=== PATIENT | male | born 1965 | race African-American/Black ===

== ENCOUNTER 2016-04-18 12:45 | Emergency (ER) | payer SELFPAY ==
[~2016-04-18] VITALS: Ht 175.3 cm; Wt 93.0 kg
[2016-04-18 12:47] VITALS: BP 132/91; PULSE 101; RESP 15; TEMP 98.1; O2SAT 95
--- NOTE | 2016-04-18 13:35 | PD ---
HPI Chief Complaint: Flank/Kidney Pain Time Seen by Provider: 13:30 Travel History International Travel<30 days: No Contact w/Intl Traveler<30days: No Traveled to known affect area: No History of Present Illness HPI Patient's 51-year-old male presenting to the emergency department for evaluation of right lower back pain. Patient states pain started last Monday , it's worse with movement and states it feels tight. Patient reports it feels somewhat better since started however he feels as if the pain is on the "inside ". He denies any dysuria but states he didn't drink a lot of soda last week when the pain started. He has been taking ibuprofen with little relief of his symptoms and has been drinking cranberry juice. He denies any history of kidney stones. He states he was diagnosed with high blood pressure while he was incarcerated but has not been taking any medications for this. 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 [facility] Past Medical History Hypertension: Yes Past Surgical History Other Surgery: Yes (hand surgery, ankle surgery) Social History Tobacco Use: Yes Allergies-Medications (Allergen,Severity, Reaction): Coded Allergies: No Known Allergies (Unverified , 04/18/16) Reported Meds & Prescriptions Reported Meds & Active Scripts Active Orphenadrine CR (Orphenadrine Citrate) 100 Mg Tab 100 Mg PO Q12HR Ibuprofen 600 Mg Tab 600 Mg PO Q6H PRN Acetaminophen Extra Strength (Acetaminophen) 500 Mg Cap 1,000 Mg PO Q6H PRN Review of Systems Except as stated in HPI: all other systems reviewed are Neg General / Constitutional: No: Fever, Chills Cardiovascular: No: Chest Pain or Discomfort Respiratory: No: Shortness of Breath Gastrointestinal: No: Nausea, Vomiting, Diarrhea, Abdominal Pain Genitourinary: No: Dysuria Musculoskeletal: Positive: Myalgias, Cramping, Pain Neurologic: No: Dizziness, Syncope Physical Exam Narrative GENERAL: Well-developed, well-nourished, alert gentleman. Resting comfortably in no acute distress. SKIN: Warm and dry. HEAD: Atraumatic. Normocephalic. EYES: Pupils equal and round. No scleral icterus. No injection or drainage. ENT: No nasal bleeding or discharge. Mucous membranes pink and moist. NECK: Trachea midline. No JVD. CARDIOVASCULAR: Regular rate and rhythm. No murmur appreciated. RESPIRATORY: No accessory muscle use. Clear to auscultation. Breath sounds equal bilaterally. GASTROINTESTINAL: Abdomen soft, non-tender, nondistended. Hepatic and splenic margins not palpable. No CVAT bilaterally MUSCULOSKELETAL: No obvious deformities. No clubbing. No cyanosis. No edema. No tenderness to palpation in paraspinal musculature in the lumbar region. NEUROLOGICAL: Awake and alert. No obvious cranial nerve deficits. Motor grossly within normal limits. Normal speech. PSYCHIATRIC: Appropriate mood and affect; insight and judgment normal. Data Data Last Documented VS Vital Signs Date Time Temp Pulse Resp B/P Pulse Ox O2 Delivery O2 Flow Rate FiO2 04/18/16 12:47 98.1 101 15 132/91 95 Orders Complete Blood Count With Diff (04/18/16 13:29) Basic Metabolic Panel (Bmp) (04/18/16 13:29) Urinalysis - C+S If Indicated (04/18/16 13:29) Ct Abd/Pel W/O Iv Contrast (04/18/16 13:29) Labs Laboratory Tests Test 04/18/16 04/18/16 13:30 13:45 White Blood Count 8.5 TH/MM3 Red Blood Count 5.54 MIL/MM3 Hemoglobin 15.5 GM/DL Hematocrit 48.0 % Mean Corpuscular Volume 86.6 FL Mean Corpuscular Hemoglobin 28.0 PG Mean Corpuscular Hemoglobin 32.4 % Concent Red Cell Distribution Width 14.6 % Platelet Count 254 TH/MM3 Mean Platelet Volume 8.5 FL Neutrophils (%) (Auto) 40.4 % Lymphocytes (%) (Auto) 48.5 % Monocytes (%) (Auto) 6.7 % Eosinophils (%) (Auto) 3.6 % Basophils (%) (Auto) 0.8 % Neutrophils # (Auto) 3.4 TH/MM3 Lymphocytes # (Auto) 4.1 TH/MM3 Monocytes # (Auto) 0.6 TH/MM3 Eosinophils # (Auto) 0.3 TH/MM3 Basophils # (Auto) 0.1 TH/MM3 CBC Comment DIFF FINAL Differential Comment Sodium Level 139 MEQ/L Potassium Level 3.8 MEQ/L Chloride Level 107 MEQ/L Carbon Dioxide Level 25.3 MEQ/L Anion Gap 7 MEQ/L Blood Urea Nitrogen 8 MG/DL Creatinine 1.19 MG/DL Estimat Glomerular Filtration 64 ML/MIN Rate Random Glucose 154 MG/DL Calcium Level 9.0 MG/DL Urine Color YELLOW Urine Turbidity CLEAR Urine pH 6.0 Urine Specific [place] 1.010 Urine Protein NEG mg/dL Urine Glucose (UA) 300 mg/dL Urine Ketones NEG mg/dL Urine Occult Blood NEG Urine Nitrite NEG Urine Bilirubin NEG Urine Urobilinogen LESS THAN 2.0 MG/DL Urine Leukocyte Esterase NEG Urine Squamous Epithelial <1 /hpf Cells Microscopic Urinalysis Comment CULT NOT INDICATED MDM Medical Decision Making Medical Screen Exam Complete: Yes Emergency Medical Condition: Yes Interpretation(s) Vital Signs Date Time Temp Pulse Resp B/P Pulse Ox O2 Delivery O2 Flow Rate FiO2 04/18/16 12:47 98.1 101 15 132/91 95 Differential Diagnosis Muscle strain versus muscle spasm versus discogenic pain versus renal stone versus urinary tract infection versus other Narrative Course Patient's 51-year-old male presenting to the emergency room for evaluation of right lower back pain that started 5 days ago. Physical examination appears more consistent with muscle strain, muscle spasms however patient is nontender on exam and moves all extremities without any pain. Labs and imaging ordered and pending. Care patient will be transferred to a provider when a medical bed is available. Scripts Orphenadrine ER 12 HR (Orphenadrine CR)100 Mg [id number] Mg PO Q12HR #10 TAB Prov:Hermilo Soler MD 04/18/16 Ibuprofen 600 Mg [id number] Mg PO Q6H PRN (Pain/Inflammation) #40 TAB Prov:Hermilo Soler MD 04/18/16 Acetaminophen (Acetaminophen Extra Strength)500 Mg Cap1,000 Mg PO Q6H PRN (PAIN SCALE 4 TO 10) #60 CAP Ref 1 Prov:Hermilo Soler MD 04/18/16 Mahi Mcfadden Apr 18, 2016 13:35
[2016-04-18 14:15] LABS: AUTOMATED NEUTROPHIL # 3.4 TH/MM3 (1.8-7.7); BASOPHIL # 0.1 TH/MM3 (0-0.2); BASOPHIL % 0.8 % (0.0-2.0); EOSINOPHIL # 0.3 TH/MM3 (0-0.4); EOSINOPHIL % 3.6 % (0.0-4.0); HEMO FLAGS DIFF FINAL; LYMPH % 48.5 % (9.0-44.0); LYMPHOCYTE # 4.1 TH/MM3 (1.0-4.8); MEAN CELL VOLUME 86.6 FL (80.0-100.0); MEAN CORPUSCULAR HGB CONC 32.4 % (32.0-36.0); MONO % 6.7 % (0.0-8.0); NEUT % 40.4 % (16.0-70.0); PLATELET COUNT 254 TH/MM3 (150-450); RED BLOOD COUNT 5.54 MIL/MM3 (4.50-5.90); RED CELL DISTRIBUTION WIDTH 14.6 % (11.6-17.2); WHITE BLOOD COUNT 8.5 TH/MM3 (4.0-11.0)
[2016-04-18 14:21] LABS: BLOOD, URINE NEG (NEG); COMMENT (UR) CULT NOT INDICATED; CULTURE IF INDICATED CULT NOT INDICATED; GLUCOSE,URINE 300 mg/dL (NEG); KETONE, URINE NEG (NEG); NITRITE,URINE NEG (NEG); SQUAMOUS EPITHELIAL CELL URINE <1 /hpf (0-5); URINE COLOR YELLOW (YELLW/STRAW)
[2016-04-18 14:30] LABS: BICARBONATE 25.3 MEQ/L (21.0-32.0); POTASSIUM 3.8 MEQ/L (3.5-5.1)
--- NOTE | 2016-04-18 14:56 | RADRPT ---
EXAM DATE/TIME: 04/18/2016 14:26 [facility] COMPARISON: No previous studies available for comparison. INDICATIONS : Right flank pain. ORAL CONTRAST: No oral contrast ingested. RADIATION DOSE: 9.96 CTDIvol (mGy) MEDICAL HISTORY : Hypertension. SURGICAL HISTORY : None. ENCOUNTER: Initial ACUITY: 1 day PAIN SCALE: 6/10 LOCATION: Right flank TECHNIQUE: Volumetric scanning of the abdomen and pelvis was performed. Using automated exposure control and ad justment of the mA and/or kV according to patient size, radiation dose was kept as low as reasonably achievable to obtain optimal diagnostic quality images. FINDINGS: LOWER LUNGS: The visualized lower lungs are clear. LIVER: Homogeneous density without lesion. There is no dilation of the biliary tree. No calcified gallston es. SPLEEN: Normal size without lesion. PANCREAS: Within normal limits. KIDNEYS: Normal in size and shape. There is no mass, stone, or hydronephrosis. ADRENAL GLANDS: Within normal limits. VASCULAR: There is no aortic aneurysm. BOWEL/MESENTERY: The stomach, small bowel, and colon demonstrate no acute abnormality. There is no free intraperitone al air or fluid. ABDOMINAL WALL: Within normal limits. RETROPERITONEUM: There is no lymphadenopathy. BLADDER: No wall thickening or mass. REPRODUCTIVE: Within normal limits. INGUINAL: There is no lymphadenopathy or hernia. MUSCULOSKELETAL: Degenerative disc disease and facet arthropathy without evidence of acute process. CONCLUSION: No acute disease. No evidence of renal calculi or obstructive uropathy. Cornelio Leon MD on April 18, 2016 at 14:52 Board Certified Radiologist. This report was verified electronically.
--- NOTE | 2016-04-18 16:14 | PD ---
Physical Exam Date Seen by Provider: Apr 18, 2016 Time Seen by Provider: 16:13 Narrative 51-year-old Afro-[place] male since the emergency Department with lower back pain for the past week. Patient was recently worked up by Mahi Rangel [employer] labs ordered including CBC, CMP, urinalysis, and CT scan lower abdomen and pelvis. All labs are within normal limits. CT is within normal limits as well. Data Data Last Documented VS Vital Signs Date Time Temp Pulse Resp B/P Pulse Ox O2 Delivery O2 Flow Rate FiO2 04/18/16 12:47 98.1 101 15 132/91 95 Orders Complete Blood Count With Diff (04/18/16 13:29) Basic Metabolic Panel (Bmp) (04/18/16 13:29) Urinalysis - C+S If Indicated (04/18/16 13:29) Ct Abd/Pel W/O Iv Contrast (04/18/16 13:29) Labs Laboratory Tests Test 04/18/16 04/18/16 13:30 13:45 White Blood Count 8.5 TH/MM3 Red Blood Count 5.54 MIL/MM3 Hemoglobin 15.5 GM/DL Hematocrit 48.0 % Mean Corpuscular Volume 86.6 FL Mean Corpuscular Hemoglobin 28.0 PG Mean Corpuscular Hemoglobin 32.4 % Concent Red Cell Distribution Width 14.6 % Platelet Count 254 TH/MM3 Mean Platelet Volume 8.5 FL Neutrophils (%) (Auto) 40.4 % Lymphocytes (%) (Auto) 48.5 % Monocytes (%) (Auto) 6.7 % Eosinophils (%) (Auto) 3.6 % Basophils (%) (Auto) 0.8 % Neutrophils # (Auto) 3.4 TH/MM3 Lymphocytes # (Auto) 4.1 TH/MM3 Monocytes # (Auto) 0.6 TH/MM3 Eosinophils # (Auto) 0.3 TH/MM3 Basophils # (Auto) 0.1 TH/MM3 CBC Comment DIFF FINAL Differential Comment Sodium Level 139 MEQ/L Potassium Level 3.8 MEQ/L Chloride Level 107 MEQ/L Carbon Dioxide Level 25.3 MEQ/L Anion Gap 7 MEQ/L Blood Urea Nitrogen 8 MG/DL Creatinine 1.19 MG/DL Estimat Glomerular Filtration 64 ML/MIN Rate Random Glucose 154 MG/DL Calcium Level 9.0 MG/DL Urine Color YELLOW Urine Turbidity CLEAR Urine pH 6.0 Urine Specific [place] 1.010 Urine Protein NEG mg/dL Urine Glucose (UA) 300 mg/dL Urine Ketones NEG mg/dL Urine Occult Blood NEG Urine Nitrite NEG Urine Bilirubin NEG Urine Urobilinogen LESS THAN 2.0 MG/DL Urine Leukocyte Esterase NEG Urine Squamous Epithelial <1 /hpf Cells Microscopic Urinalysis Comment CULT NOT INDICATED MDM Medical Record Reviewed: Yes Supervised Visit with AMARI: Yes Differential Diagnosis Lower abdominal pain. Lumbago. Muscle spasm. Narrative Course Patient was recently worked up by Mahi CARRILLO labs ordered including CBC, CMP, urinalysis, and CT scan lower abdomen and pelvis. All labs are within normal limits. CT is within normal limits as well. Patient be discharged home with a prescription for Norflex 100 mg twice a day # 10. Patient is given ibuprofen 600 mg 4 times a day #40. Patient can take extra strength Tylenol 2 tabs every 6 hours when necessary as well. Patient is use heat and ice and gentle stretching and follow-up with local primary care physician as needed. Patient male was return to the emergency department if symptoms worsen. Diagnosis Primary Impression: Low back pain Qualified Code: M54.5 - Acute bilateral low back pain without sciatica Patient Instructions: Acute Low Back Pain (ED), General Instructions, Lower Back Exercises (GEN) Additional Instruction: Patient be discharged home with a prescription for Norflex 100 mg twice a day # 10. Patient is given ibuprofen 600 mg 4 times a day #40. Patient can take extra strength Tylenol 2 tabs every 6 hours when necessary as well. Patient is use heat and ice and gentle stretching and follow-up with local primary care physician as needed. Patient male was return to the emergency department if symptoms worsen. Med/Other Pt SpecificInfo: Prescription(s) given Scripts Orphenadrine ER 12 HR (Orphenadrine CR)100 Mg [id number] Mg PO Q12HR #10 TAB Prov:Hermilo Soler MD 04/18/16 Ibuprofen 600 Mg [id number] Mg PO Q6H PRN (Pain/Inflammation) #40 TAB Prov:Hermilo Soler MD 04/18/16 Acetaminophen (Acetaminophen Extra Strength)500 Mg Cap1,000 Mg PO Q6H PRN (PAIN SCALE 4 TO 10) #60 CAP Ref 1 Prov:Hermilo Soler MD 04/18/16 Disposition: DISCHARGE HOME Condition: Stable Juaquin Silverman Apr 18, 2016 16:14
[2016-04-18] MEDS ORDERED: EXTR500C PO (16:20)
[2016-04-18] MEDS ORDERED: IBUP-232 PO (16:20)
[2016-04-18] MEDS ORDERED: ORPH100T99 PO (16:20)
== END 2016-04-18 16:53 | disposition home or self-care (01) ==
LOC: NEPB 12:45
DX: M54.5 Low back pain (principal); I10 Essential (primary) hypertension; Z72.0 Tobacco use
CPT/HCPCS: 74176; 80048; 81001; 85025

== ENCOUNTER 2017-04-05 14:14 | Inpatient (IN) | payer MEDICARE, MEDICAID ==
[~2017-04-05 14:14] MED LIST: EXTR500C PO; IBUP-232 PO; ORPH100T2 PO
[2017-04-05] MEDS ORDERED: IOHEXOL 350 MG/ML 10 ML VIAL (for RAD DIAG) IVCONTRAST ONE (14:15)
[2017-04-05 14:34] VITALS: BP 165/111; PULSE 101; RESP 16; TEMP 98.1; O2SAT 99
[2017-04-05] MEDS ORDERED: SODIUM CHLOR 0.9% 1000 ML INJ 1,000 ML IV SCH (15:22)
--- NOTE | 2017-04-05 15:27 | PD ---
HPI Chief Complaint: GI Complaint Time Seen by Provider: 15:17 Travel History International Travel<30 days: No Contact w/Intl Traveler<30days: No Traveled to known affect area: No History of Present Illness HPI 52-year-old -[place] male presents emergency department with history of left low back and hip pain with radicular symptoms into the right lower leg. Patient states he took 2 BC powders last evening. He states he woke up in the night last night with vomiting and nausea which is continued through the day today. He is now complaining of left lower abdominal pain. He denies heartburn. He denies diarrhea or constipation. He states he continues to be nauseous. Patient has no previous history of kidney stones or diverticulitis or colitis in the past. Pain is currently 8 out of 10. He denies weakness in the left lower extremity. He denies rash. He has no known drug allergies. PFSH Past Medical History Hypertension: Yes Tetanus Vaccination: < 5 Years Past Surgical History Other Surgery: Yes (hand surgery, ankle surgery) Social History Alcohol Use: No Tobacco Use: Yes Substance Use: No Allergies-Medications (Allergen,Severity, Reaction): Coded Allergies: No Known Allergies (Unverified Allergy, Unknown, 04/05/17) Reported Meds & Prescriptions Reported Meds & Active Scripts Active Orphenadrine CR (Orphenadrine Citrate) 100 Mg Tab 100 Mg PO Q12HR Ibuprofen 600 Mg Tab 600 Mg PO Q6H PRN Acetaminophen Extra Strength (Acetaminophen) 500 Mg Cap 1,000 Mg PO Q6H PRN Review of Systems Except as stated in HPI: all other systems reviewed are Neg General / Constitutional: No: Fever, Chills Eyes: No: Visual changes HENT: No: Headaches Cardiovascular: No: Chest Pain or Discomfort Respiratory: No: Shortness of Breath Gastrointestinal: Positive: Nausea, Vomiting, Abdominal Pain, No: Diarrhea Genitourinary: No: Dysuria Musculoskeletal: Positive: Myalgias, Pain Skin: No Rash Neurologic: No: Weakness Psychiatric: No: Depression Endocrine: No: Polydipsia Hematologic/Lymphatic: No: Easy Bruising Physical Exam Narrative GENERAL: Patient appears in no obvious distress per SKIN: Warm and dry. Normal color. Normal turgor. No rash. HEAD: Atraumatic. Normocephalic. EYES: Pupils equal and round. No scleral icterus. No injection or drainage. ENT: No nasal bleeding or discharge. Mucous membranes pink and moist. Pharynx is clear. Airways patent NECK: Trachea midline. Supple. CARDIOVASCULAR: Regular rate and rhythm. No murmurs gallops or rubs RESPIRATORY: No accessory muscle use. Clear to auscultation. Breath sounds equal bilaterally. GASTROINTESTINAL: Abdomen soft, diffuse mild tenderness on the left than the right. Nondistended. No CVA tenderness. Hepatic and splenic margins not palpable. MUSCULOSKELETAL: Extremities without clubbing, cyanosis, or edema. No obvious deformities. NEUROLOGICAL: Awake and alert. No obvious cranial nerve deficits. Motor grossly within normal limits. Five out of 5 muscle strength in the arms and legs. Normal speech. PSYCHIATRIC: Appropriate mood and affect; insight and judgment normal. Data Data Last Documented VS Vital Signs Date Time Temp Pulse Resp B/P (MAP) Pulse Ox O2 Delivery O2 Flow Rate FiO2 04/05/17 15:41 Room Air 04/05/17 15:41 98 04/05/17 14:34 98.1 101 16 Orders Orders Complete Blood Count With Diff (04/05/17 14:34) Comprehensive Metabolic Panel (04/05/17 14:34) Urinalysis - C+S If Indicated (04/05/17 14:34) Iv Access Insert/Monitor (04/05/17 14:34) Oxygen Administration (04/05/17 14:34) Oximetry (04/05/17 14:34) Lipase (04/05/17 14:34) Ct Abd/Pel W Iv Contrast(Rout) (04/05/17 15:22) Ecg Monitoring (04/05/17 15:22) Ondansetron Inj (Zofran Inj) (04/05/17 15:30) Sodium Chlor 0.9% 1000 Ml Inj (Ns 1000 M (04/05/17 15:22) Sodium Chloride 0.9% Flush (Ns Flush) (04/05/17 15:30) Ketorolac Inj (Toradol Inj) (04/05/17 15:30) Al-Mag Hy-Si 40-40-4 Mg/Ml Liq (Mag-Al P (04/05/17 15:30) Lidocaine 2% Viscous (Xylocaine 2% Visco (04/05/17 15:30) Iohexol 350 Inj (Omnipaque 350 Inj) (04/05/17 14:15) Labs Laboratory Tests Test 04/05/17 14:42 04/05/17 14:45 White Blood Count 10.0 TH/MM3 Red Blood Count 5.71 MIL/MM3 Hemoglobin 16.7 GM/DL Hematocrit 49.0 % Mean Corpuscular Volume 85.9 FL Mean Corpuscular Hemoglobin 29.3 PG Mean Corpuscular Hemoglobin Concent 34.1 % Red Cell Distribution Width 14.1 % Platelet Count 272 TH/MM3 Mean Platelet Volume 7.9 FL Neutrophils (%) (Auto) 58.6 % Lymphocytes (%) (Auto) 33.5 % Monocytes (%) (Auto) 6.6 % Eosinophils (%) (Auto) 0.8 % Basophils (%) (Auto) 0.5 % Neutrophils # (Auto) 5.8 TH/MM3 Lymphocytes # (Auto) 3.3 TH/MM3 Monocytes # (Auto) 0.7 TH/MM3 Eosinophils # (Auto) 0.1 TH/MM3 Basophils # (Auto) 0.1 TH/MM3 CBC Comment DIFF FINAL Differential Comment Blood Urea Nitrogen 8 MG/DL Creatinine 1.13 MG/DL Random Glucose 107 MG/DL Total Protein 8.9 GM/DL Albumin 4.2 GM/DL Calcium Level 9.0 MG/DL Alkaline Phosphatase 66 U/L Aspartate Amino Transf (AST/SGOT) 16 U/L Alanine Aminotransferase (ALT/SGPT) 27 U/L Total Bilirubin 0.4 MG/DL Sodium Level 137 MEQ/L Potassium Level 3.4 MEQ/L Chloride Level 102 MEQ/L Carbon Dioxide Level 28.0 MEQ/L Anion Gap 7 MEQ/L Estimat Glomerular Filtration Rate 83 ML/MIN Lipase 935 U/L Urine Color YELLOW Urine Turbidity CLEAR Urine pH 6.0 Urine Specific [place] 1.019 Urine Protein NEG mg/dL Urine Glucose (UA) NEG mg/dL Urine Ketones NEG mg/dL Urine Occult Blood NEG Urine Nitrite NEG Urine Bilirubin NEG Urine Urobilinogen LESS THAN 2.0 MG/DL Urine Leukocyte Esterase NEG Urine WBC LESS THAN 1 /hpf Microscopic Urinalysis Comment CULT NOT INDICATED MDM Medical Decision Making Medical Screen Exam Complete: Yes Emergency Medical Condition: Yes Differential Diagnosis Left lower abdominal pain. Diverticulitis. Gastroenteritis. Left flank pain. Sciatica. Narrative Course Labs ordered including CBC, CMP, lipase, and urinalysis. IV access is obtained the patient is given 1000 mL's normal saline bolus. Patient is given Toradol 30 mg IV as well as Zofran 4 mg IV. Abdominal pelvic CT is ordered with IV contrast. CBC is unremarkable Urinalysis is unremarkable. CMP shows potassium 3.4, GFR slightly low at 83, cranial glucose 107. Total protein 8.9 Lipase is significantly elevated at 935 CT scan shows: CONCLUSION: 1. No abnormality is identified to explain the abdominal pain. No acute finding is seen. 2. There is a stable 12 mm left adrenal gland nodule. The lack of exchange operator the one year strongly suggests a benign process. Patient is felt to warrant observation for acute pancreatitis. Call laced to the hospitalist for admission Diagnosis Primary Impression: Pancreatitis, acute Qualified Codes: K85.90 - Acute pancreatitis without necrosis or infection, unspecified Additional Impressions: Nausea and vomiting Qualified Codes: R11.2 - Nausea with vomiting, unspecified Abdominal pain Qualified Codes: R10.12 - Left upper quadrant pain Admitting Information Admitting Physician Requests: Observation Condition: Stable Juaquin Silverman Apr 05, 2017 15:27
[2017-04-05] MEDS ORDERED: SODIUM CHLORIDE 0.9% FLUSH 10 ML FLUSH IV FLUSH PRN ×2 (15:30→19:00)
[2017-04-05] MEDS ORDERED: LIDOCAINE VISCOUS 2% SOLN 15 ML UDC PO ONE (15:30)
[2017-04-05] MEDS ORDERED: ONDANSETRON HCL 4 MG/2 ML VIAL IVP ONE (15:30)
[2017-04-05] MEDS ORDERED: KETOROLAC TROMETHAMINE 30 MG/ML (IVP) VIAL IVP ONE (15:30)
[2017-04-05] MEDS ORDERED: ALUMINUM/MAGNESIUM/SIMETH 30 ML CUP PO ONE (15:30)
[2017-04-05 15:41] VITALS: O2SAT 98
[2017-04-05 15:43] LABS: AUTOMATED NEUTROPHIL # 5.8 TH/MM3 (1.8-7.7); BASOPHIL # 0.1 TH/MM3 (0-0.2); BASOPHIL % 0.5 % (0.0-2.0); EOSINOPHIL # 0.1 TH/MM3 (0-0.4); EOSINOPHIL % 0.8 % (0.0-4.0); HEMOGLOBIN 16.7 GM/DL (13.0-17.0); LYMPH % 33.5 % (9.0-44.0); LYMPHOCYTE # 3.3 TH/MM3 (1.0-4.8); MEAN CELL VOLUME 85.9 FL (80.0-100.0); MEAN CORPUSCULAR HEMOGLOBIN 29.3 PG (27.0-34.0); MEAN CORPUSCULAR HGB CONC 34.1 % (32.0-36.0); MEAN PLATELET VOLUME 7.9 FL (7.0-11.0); MONO % 6.6 % (0.0-8.0); MONOCYTE # 0.7 TH/MM3 (0-0.9); NEUT % 58.6 % (16.0-70.0); PLATELET COUNT 272 TH/MM3 (150-450); RED BLOOD COUNT 5.71 MIL/MM3 (4.50-5.90); RED CELL DISTRIBUTION WIDTH 14.1 % (11.6-17.2)
[2017-04-05 15:55] LABS: BILIRUBIN, URINE NEG (NEG); BLOOD, URINE NEG (NEG); GLUCOSE,URINE NEG (NEG); KETONE, URINE NEG (NEG); NITRITE,URINE NEG (NEG); URINE COLOR YELLOW (YELLW/STRAW); URINE LEUKOCYTE ESTERASE NEG (NEG)
[2017-04-05 16:02] LABS: ALBUMIN 4.2 GM/DL (3.4-5.0); ALT (GPT) 27 U/L (12-78); AST (GOT) 16 U/L (15-37); BLOOD UREA NITROGEN 8 MG/DL (7-18); CHLORIDE 102 MEQ/L (98-107); CREATININE 1.13 MG/DL (0.60-1.30); GLOMERULAR FILTRATION RATE 83 ML/MIN (>89); GLUCOSE,RANDOM 107 MG/DL (74-106); SODIUM (NA) 137 MEQ/L (136-145)
[2017-04-05 16:04] LABS: ALKALINE PHOSPHATASE 66 U/L (45-117); TOTAL BILIRUBIN ADULT 0.4 MG/DL (0.2-1.0); TOTAL PROTEIN 8.9 GM/DL (6.4-8.2)
--- NOTE | 2017-04-05 16:49 | RADRPT ---
EXAM DATE/TIME: 04/05/2017 16:27 [facility] COMPARISON: CT ABDOMEN & PELVIS W/O CONTRAST, April 18, 2016, 14:26. INDICATIONS : Vomiting, left lower quadrant pain. IV CONTRAST: 97 cc Omnipaque 350 (iohexol) IV ORAL CONTRAST: No oral contrast ingested. RADIATION DOSE: 11.64 CTDIvol (mGy) MEDICAL HISTORY : Hypertension. SURGICAL HISTORY : None. ENCOUNTER: Initial ACUITY: 1 day PAIN SCALE: 7/10 LOCATION: Left lower quadrant TECHNIQUE: Volumetric scanning of the abdomen and pelvis was performed. Using automated exposure control and ad justment of the mA and/or kV according to patient size, radiation dose was kept as low as reasonably achievable to obtain optimal diagnostic quality images. DICOM format image data is available electro nically for review and comparison. FINDINGS: LOWER LUNGS: The visualized lower lungs are clear. LIVER: Homogeneous density without lesion. There is no dilation of the biliary tree. No calcified gallston es. SPLEEN: Normal size without lesion. PANCREAS: Within normal limits. KIDNEYS: Normal in size and shape. There is no mass, stone or hydronephrosis. ADRENAL GLANDS: Right adrenal gland is within normal limits. There is a small nodule/mass arising from the left adren al gland measuring 12 x 8 mm, stable from the prior study. Hounsfield measurements on the prior nonco ntrast enhanced examination were 12. VASCULAR: There is no aortic aneurysm. There is moderate atherosclerotic disease. BOWEL/MESENTERY: The stomach, small bowel, and colon demonstrate no acute abnormality. There is no free intraperitone al air or fluid. Appendix and terminal ileum are normal. ABDOMINAL WALL: Within normal limits. RETROPERITONEUM: There is no lymphadenopathy. BLADDER: No wall thickening or mass. REPRODUCTIVE: Within normal limits. INGUINAL: There is no lymphadenopathy or hernia. MUSCULOSKELETAL: There are degenerative changes of the lumbar spine with pars defects of L5. CONCLUSION: 1. No abnormality is identified to explain the abdominal pain. No acute finding is seen. 2. There is a stable 12 mm left adrenal gland nodule. The lack of gear changer the one year strongly s uggests a benign process. Efe Plaza MD on April 05, 2017 at 16:44 Board Certified Radiologist. This report was verified electronically.
[2017-04-05 18:08] VITALS: BP 158/99; PULSE 90; RESP 16; O2SAT 99
--- NOTE | 2017-04-05 18:28 | HHI.HP ---
HPI Service Family Medicine Primary Care Physician No Primary Care Physician Admission Diagnosis Pancreatitis/Nausea/Vomitting Diagnoses: Chief Complaint: abdominal pain International Travel<30 Days: No Contact w/Intl Traveler<30days: No History of Present Illness 52-year-old [place] male with history of pancreatitis presents today with abdominal pain. He states the pain started yesterday afternoon around 6 PM. Pain started suddenly. Located around his left/middle abdomen. Pain does not radiate. Discussed the pain is burning. 11/15. The pain has resolved currently after pain medication. The pain is constant. The pain did not come and go. He took 2 BC powders yesterday evening, they didn't help. He has vomited numerous times. No bloody emesis. Continued nausea. Denies any chest pain or shortness of breath. Denies any diarrhea. No fever/chills. Last bowel movement yesterday afternoon. Had baked chicken yesterday evening, said it tasted funny. No history of gallbladder disease. Says he has a history of hyperlipidemia. He last had pancreatitis in 2014 and was hospitalized. At that time, he was a heavy drinker. Stopped drinking since then. History of heartburn as well. Smoker as well. Review of Systems Constitutional: DENIES: Fever, Weight gain, Weight loss, Chills, Dizziness Eyes: DENIES: Vision loss Ears, nose, mouth, throat: DENIES: Hearing loss Respiratory: DENIES: Cough, Shortness of breath Cardiovascular: DENIES: Chest pain, Palpitations Past Family Social History Past Medical History Pancreatitis in the past Past Surgical History Left ankle surgery Right hand tendon Reported Medications Reported Meds & Active Scripts Active Orphenadrine CR (Orphenadrine Citrate) 100 Mg Tab 100 Mg PO Q12HR Ibuprofen 600 Mg Tab 600 Mg PO Q6H PRN Acetaminophen Extra Strength (Acetaminophen) 500 Mg Cap 1,000 Mg PO Q6H PRN Allergies: Coded Allergies: No Known Allergies (Unverified Allergy, Unknown, 04/05/17) Active Ordered Medications Active Medications Al Hydrox/Mg Hydrox/Simethicone (Mag-Al Plus Susp Liq) 30 ml ONCE ONCE PO Last administered on 04/05/17at 15:39; Admin Dose 30 ML; Start 04/05/17 at 15:30; Stop 04/05/17 at 15:31; Status DC Iohexol (Omnipaque 350 Inj) 97 ml STK-MED ONCE IVCONTRAST Last administered on at 16:40; Admin Dose 97 ML; Start 04/05/17 at 14:15; Stop 04/05/17 at 16: 39; Status DC Ketorolac Tromethamine (Toradol Inj) 30 mg ONCE ONCE IVP Last administered on at 15:40; Admin Dose 30 MG; Start 04/05/17 at 15:30; Stop 04/05/17 at 15: 31; Status DC Lidocaine HCl (Xylocaine 2% Viscous) 15 ml ONCE ONCE PO Last administered on at 15:39; Admin Dose 15 ML; Start 04/05/17 at 15:30; Stop 04/05/17 at 15:31 ; Status DC Ondansetron HCl (Zofran Inj) 4 mg ONCE ONCE IVP Last administered on 04/05/17at 15:39; Admin Dose 4 MG; Start 04/05/17 at 15:30; Stop 04/05/17 at 15:31; Status DC Sodium Chloride 1,000 ml @ 1,000 mls/hr Q1H IV Last administered on 04/05/17at 15:41; Admin Dose 1,000 MLS/HR; Start 04/05/17 at 15:22; Stop 04/05/17 at 16:21 ; Status DC Sodium Chloride (NS Flush) 2 ml UNSCH PRN IV FLUSH; Start 04/05/17 at 15:30 Family History Mother-HTN, epilepsy Father-unknown Sister-DM Social History Lives with mother 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 SKIN: No rashes, ecchymoses or lesions. Cool and dry. HEAD: Atraumatic. Normocephalic. EYES: Pupils equal round and reactive. Extraocular motions intact. No scleral icterus. No injection or drainage. ENT: Throat without erythema, tonsillar hypertrophy or exudate. Uvula midline. Airway patent. NECK: Trachea midline. No JVD or lymphadenopathy. Supple, nontender, no meningeal signs. CARDIOVASCULAR: Regular rate and rhythm without murmurs, gallops, or rubs. RESPIRATORY: Clear to auscultation. Breath sounds equal bilaterally. No wheezes , rales, or rhonchi. GASTROINTESTINAL: Abdomen soft, non-tender, nondistended. No hepato-splenomegaly , or palpable masses. No guarding. MUSCULOSKELETAL: Extremities without clubbing, cyanosis, or edema. No joint tenderness, effusion, or edema noted. No calf tenderness. NEUROLOGICAL: Awake and alert. Motor and sensory grossly within normal limits. Normal speech. Laboratory Laboratory Tests Test 04/05/17 14:42 04/05/17 14:45 White Blood Count 10.0 Red Blood Count 5.71 Hemoglobin 16.7 Hematocrit 49.0 Mean Corpuscular Volume 85.9 Mean Corpuscular Hemoglobin 29.3 Mean Corpuscular Hemoglobin Concent 34.1 Red Cell Distribution Width 14.1 Platelet Count 272 Mean Platelet Volume 7.9 Neutrophils (%) (Auto) 58.6 Lymphocytes (%) (Auto) 33.5 Monocytes (%) (Auto) 6.6 Eosinophils (%) (Auto) 0.8 Basophils (%) (Auto) 0.5 Neutrophils # (Auto) 5.8 Lymphocytes # (Auto) 3.3 Monocytes # (Auto) 0.7 Eosinophils # (Auto) 0.1 Basophils # (Auto) 0.1 CBC Comment DIFF FINAL Differential Comment Blood Urea Nitrogen 8 Creatinine 1.13 Random Glucose 107 Total Protein 8.9 Albumin 4.2 Calcium Level 9.0 Alkaline Phosphatase 66 Aspartate Amino Transf (AST/SGOT) 16 Alanine Aminotransferase (ALT/SGPT) 27 Total Bilirubin 0.4 Sodium Level 137 Potassium Level 3.4 Chloride Level 102 Carbon Dioxide Level 28.0 Anion Gap 7 Estimat Glomerular Filtration Rate 83 Lipase 935 Urine Color YELLOW Urine Turbidity CLEAR Urine pH 6.0 Urine Specific [place] 1.019 Urine Protein NEG Urine Glucose (UA) NEG Urine Ketones NEG Urine Occult Blood NEG Urine Nitrite NEG Urine Bilirubin NEG Urine Urobilinogen LESS THAN 2.0 Urine Leukocyte Esterase NEG Urine WBC LESS THAN 1 Microscopic Urinalysis Comment CULT NOT INDICATED Result Diagram: 04/05/17 1442 04/05/17 1442 Imaging Last Impressions Abdomen/Pelvis CT 04/05/17 1522 Signed Impressions: Service Date/Time: Wednesday, April 05, 2017 16:27 - CONCLUSION: 1. No abnormality is identified to explain the abdominal pain. No acute finding is seen. 2. There is a stable 12 mm left adrenal gland nodule. The lack of private branch exchange operator the one year strongly suggests a benign process. MD Lotus Lala VTE Risk Assessment Caprini VTE Risk Assessment: No/Low Risk (score <= 1) Caprini Risk Assessment Model Point Value = 1 Point Value = 2 Point Value = 3 Point Value = 5 Age 41-60 Minor surgery BMI > 25 kg/m2 Swollen legs Varicose veins or History of unexplained or recurrent spontaneous Oral contraceptives or hormone replacement Sepsis (< 1 month) Serious lung disease, including pneumonia (< 1 month) Abnormal pulmonary function Acute myocardial infarction Congestive heart failure (< 1 month) History of inflammatory bowel disease Medical patient at bed rest Age 61-74 Arthroscopic surgery Major open surgery (> 45 min) Laparoscopic surgery (> 45 min) Malignancy Confined to bed (> 72 hours) Immobilizing plaster cast Central venous access Age >= 75 History of VTE Family history of VTE Factor V Leiden Prothrombin [id number] Lupus anticoagulant Anticardiolipin antibodies Elevated serum homocysteine Heparin-induced thrombocytopenia Other congenital or acquired thrombophilia Stroke (< 1 month) Elective arthroplasty Hip, pelvis, or leg fracture Acute spinal cord injury (< 1 month) Prophylaxis Regimen Total Risk Factor Score Risk Level Prophylaxis Regimen 0-1 Low Early ambulation 2 Moderate Order ONE of the following: *Sequential Compression Device (SCD) *Heparin 5000 units SQ BID 3-4 Higher Order ONE of the following medications: *Heparin 5000 units SQ TID *Enoxaparin/Lovenox 40 mg SQ daily (WT < 150 kg, CrCl > 30 mL/min) *Enoxaparin/Lovenox 30 mg SQ daily (WT < 150 kg, CrCl > 10-29 mL/min) *Enoxaparin/Lovenox 30 mg SQ BID (WT < 150 kg, CrCl > 30 mL/min) AND/OR *Sequential Compression Device (SCD) 5 or more Highest Order ONE of the following medications: *Heparin 5000 units SQ TID (Preferred with Epidurals) *Enoxaparin/Lovenox 40 mg SQ daily (WT < 150 kg, CrCl > 30 mL/min) *Enoxaparin/Lovenox 30 mg SQ daily (WT < 150 kg, CrCl > 10-29 mL/min) *Enoxaparin/Lovenox 30 mg SQ BID (WT < 150 kg, CrCl > 30 mL/min) AND *Sequential Compression Device (SCD) Assessment and Plan Assessment and Plan 52 y/o male with history of pancreatitis, presents with abdominal pain with lipase elevated. Will admit for pancreatitis Code Status Full Discussed Condition With Mr. Silverman Problem List: (1) Pancreatitis, acute ICD Codes: K85.90 - Acute pancreatitis without necrosis or infection, unspecified Status: Acute Plan: Potential etiologies include gallstones, alcoholism, hypertriglyceridemia , medications, recent fatty meal, virus, versus other. Pt denies any alcohol use LFTs 16, 27; Lipase 935. Alk phos 66 Sim score of 0. Unable to calculate [place] due to no ABG CT scan: no acute abnormality -NPO, if nausea/vomiting improve may advance diet tomorrow as tolerated -LR at 250 mL per hour -I/O -Pain control: Toradol, morphine breakthrough -UDS, alcohol level -CBC, CMP, lipase in AM -Lipid profile to evaluate for triglyceridemia (2) HTN (hypertension) ICD Codes: I10 - Essential (primary) hypertension Plan: BP 165/11 on admission. May be pain-related -Continue to monitor -May benefit from outpatient treatment if continued (3) FEN Status: Acute Plan: Fluids: LR @ 250mls/hr Electrolytes: wnl, continue to monitor Nutrition: NPO DVT ppx: early ambulation Problem Qualifiers (1) Pancreatitis, acute: Qualified Codes: K85.90 - Acute pancreatitis without necrosis or infection, unspecified (2) HTN (hypertension): Qualified Codes: I10 - Essential (primary) hypertension All Barron MD Apr 05, 2017 18:28
[2017-04-05] MEDS ORDERED: ACETAMINOPHEN 325 MG TAB PO PRN (19:00)
[2017-04-05] MEDS ORDERED: MORPHINE SULFATE 2 MG/ML INJ IV PUSH PRN (19:00)
[2017-04-05] MEDS ORDERED: ONDANSETRON HCL 4 MG/2 ML VIAL IV PUSH PRN (19:00)
[2017-04-05] MEDS ORDERED: KETOROLAC TROMETHAMINE 30 MG/ML (IVP) VIAL IV PUSH PRN ×2 (19:00)
[2017-04-05] MEDS ORDERED: NALOXONE HCL 0.4 MG/ML AMP IV PUSH PRN (19:00)
[2017-04-05] MEDS: LACTATED RINGER'S 1000 ML INJ 1,000 ML IV SCH (20:48)
[2017-04-05] MEDS: SODIUM CHLORIDE 0.9% FLUSH 10 ML FLUSH IV FLUSH SCH (21:00)
[2017-04-05 21:16] VITALS: BP 135/93; PULSE 88; RESP 14; TEMP 98.1; O2SAT 94
[2017-04-05 21:43] LABS: TROPONIN I LESS THAN 0.02 NG/ML (0.02-0.05)
[2017-04-05 21:45] LABS: CHOLESTEROL/ HDL RATIO 3.46 RATIO; HDL CHOLESTEROL 54.9 MG/DL (40.0-60.0)
[2017-04-05 23:13] VITALS: BP 129/86; PULSE 85; RESP 16; TEMP 98.3; O2SAT 92
[2017-04-06] VITALS (7 sets, daily range): BP systolic 120–158; BP diastolic 66–95; PULSE 73–82; RESP 14–18; TEMP 98.1–98.7; O2SAT 94–97
[2017-04-06] MEDS: LACTATED RINGER'S 1000 ML INJ 1,000 ML IV SCH ×7 (01:14→23:30)
[2017-04-06 07:45] LABS: AUTOMATED NEUTROPHIL # 3.9 TH/MM3 (1.8-7.7); BASOPHIL # 0.1 TH/MM3 (0-0.2); BASOPHIL % 0.7 % (0.0-2.0); EOSINOPHIL # 0.2 TH/MM3 (0-0.4); EOSINOPHIL % 1.7 % (0.0-4.0); HEMATOCRIT 42.8 % (39.0-51.0); HEMOGLOBIN 14.4 GM/DL (13.0-17.0); LYMPH % 45.1 % (9.0-44.0); MEAN CELL VOLUME 86.5 FL (80.0-100.0); MEAN CORPUSCULAR HEMOGLOBIN 29.2 PG (27.0-34.0); MEAN CORPUSCULAR HGB CONC 33.7 % (32.0-36.0); MEAN PLATELET VOLUME 7.5 FL (7.0-11.0); MONO % 8.2 % (0.0-8.0); MONOCYTE # 0.7 TH/MM3 (0-0.9); NEUT % 44.3 % (16.0-70.0); PLATELET COUNT 234 TH/MM3 (150-450); RED BLOOD COUNT 4.95 MIL/MM3 (4.50-5.90); RED CELL DISTRIBUTION WIDTH 14.2 % (11.6-17.2); WHITE BLOOD COUNT 8.9 TH/MM3 (4.0-11.0)
[2017-04-06] MEDS: SODIUM CHLORIDE 0.9% FLUSH 10 ML FLUSH IV FLUSH SCH ×2 (08:32→21:03)
[2017-04-06] MEDS ORDERED: amLODIPine BESYLATE 5 MG TAB PO SCH (09:00)
--- NOTE | 2017-04-06 11:49 | HHI.FPPN ---
Subjective Remarks Patient seen and examined this morning. Temperature 98.1, pulse 82, respiratory rate 18, blood pressure 158/92, pulse ox 95 on room air. Reports that he is feeling better today though he is still feeling some abdominal pain. Describes the abdominal pain as a burning sensation that comes on rapidly and slowly fades away. It lasts for a few minutes. The pain causes him to feel nauseated and he has vomited a few times. He is not feeling hungry at this time. He has not had any bowel movements at this time either. We will start him on a liquid diet today and see how he progresses. (Bin Angela MD, R3) Objective Vitals Vital Signs Date Time Temp Pulse Resp B/P (MAP) Pulse Ox O2 Delivery O2 Flow Rate FiO2 04/06/17 09:52 20 04/06/17 07:52 98.1 82 18 158/92 (114) 95 04/06/17 03:32 98.2 77 16 147/90 (109) 94 04/05/17 23:13 98.3 85 16 129/86 (100) 92 04/05/17 21:16 98.1 88 14 135/93 (107) 94 04/05/17 20:40 04/05/17 18:08 90 16 158/99 (118) 99 04/05/17 15:41 Room Air 04/05/17 15:41 98 04/05/17 14:34 98.1 101 16 165/111 (129) 99 (Bin Angela MD, R3) Result Diagram: 04/06/17 0710 04/05/17 1442 Imaging Last Impressions Abdomen/Pelvis CT 04/05/17 1522 Signed Impressions: Service Date/Time: Wednesday, April 05, 2017 16:27 - CONCLUSION: 1. No abnormality is identified to explain the abdominal pain. No acute finding is seen. 2. There is a stable 12 mm left adrenal gland nodule. The lack of frame changer the one year strongly suggests a benign process. Efe Plaza MD Objective Remarks GEN: Well-developed, well-nourished patient. No acute distress. CV: Regular rate and rhythm without obvious murmurs LUNGS: Clear to auscultation bilaterally. Normal respiratory effort. No wheezes , rales, rhonchi. GI: Soft, nontender, nondistended. No palpable masses. Bowel sounds WNL. EXT: No edema. NEURO/PSYCH: Afocal. Awake, alert, and oriented x3. Appropriate insight and judgment. Medications and IVs Current Medications Medications (Trade) Dose Ordered Sig/Julian Route Start Time Stop Time Status Last Admin (NS Flush) 2 ml UNSCH PRN IV FLUSH 04/05/17 15:30 Lactated Ringer's 1,000 ml @ 250 mls/hr Q4H IV 04/05/17 19:30 04/06/17 08:32 (NS Flush) 2 ml UNSCH PRN IV FLUSH 04/05/17 19:00 (NS Flush) 2 ml BID IV FLUSH 04/05/17 21:00 (Zofran Inj) 4 mg Q6H PRN IV PUSH 04/05/17 19:00 (Tylenol) 650 mg Q6H PRN PO 04/05/17 19:00 (Toradol Inj) 15 mg Q6H PRN IV PUSH 04/05/17 19:00 04/10/17 18:59 (Toradol Inj) 30 mg Q6H PRN IV PUSH 04/05/17 19:00 04/10/17 18:59 04/06/17 08:33 (Morphine Inj) 2 mg Q3H PRN IV PUSH 04/05/17 19:00 (Narcan Inj) 0.4 mg UNSCH PRN IV PUSH 04/05/17 19:00 (Bin Angela MD, R3) A/P Assessment and Plan 52 y/o male with history of pancreatitis, presents with abdominal pain with lipase elevated. Will admit for pancreatitis Discharge Planning Pending improvement of abdominal pain and tolerance of a diet (Bin Angela MD, R3) Attending Attestation THIS CASE WAS DISCUSSED WITH THE RESIDENT PHYSICIANS DR ANGELA>DR FLAHERTY AND DR BUSTAMANTE.PATIENT WAS SEEN AND EXAMINED. I HAVE REVIEWED THE RECORD AND AGREE WITH THE ABOVE NOTE AND PLAN OF CARE WAS DISCUSSED. I HAVE AUTHORIZED THE ORDER FOR ADMISSION TO AN IN-PATIENT STATUS. (Joselo Orona MD) Problem List: (1) Pancreatitis, acute ICD Codes: K85.90 - Acute pancreatitis without necrosis or infection, unspecified Status: Acute Plan: Patient admitted for pancreatitis due to elevated lipase, gastritis is also in the differential. Pt denies any alcohol use Lipases trended down from 935-153 on 04/06/17 [place] score of 0. Unable to calculate [place] due to no ABG CT scan: no acute abnormality -Started liquid diet will progress as tolerated -Protonix 40 mg IV daily -LR at 250 mL per hour -I/O -Pain control: Toradol, morphine breakthrough -UDS, alcohol level: Negative -BMP for the a.m. -Lipid profile: Within normal limits (2) Gastritis ICD Codes: K29.70 - Gastritis, unspecified, without bleeding Plan: See plan above (3) HTN (hypertension) ICD Codes: I10 - Essential (primary) hypertension Plan: BP 165/11 on admission. Continues to be mildly elevated during his hospitalization. -Continue to monitor -May benefit from outpatient treatment if continued (4) FEN Status: Acute Plan: Fluids: LR @ 250mls/hr Electrolytes: wnl, continue to monitor Nutrition: Liquid diet DVT ppx: early ambulation, SCDs (Bin Angela MD, R3) Problem Qualifiers (1) Pancreatitis, acute: Qualified Codes: K85.90 - Acute pancreatitis without necrosis or infection, unspecified (2) HTN (hypertension): Qualified Codes: I10 - Essential (primary) hypertension Bin Angela MD, R3 Apr 06, 2017 11:49 Joselo Oroan MD Apr 07, 2017 14:10
[2017-04-06] MEDS ORDERED: PANTOPRAZOLE SODIUM 40 MG VIAL IV PUSH SCH (12:00)
[2017-04-07 03:34] VITALS: BP 115/73; PULSE 74; RESP 16; TEMP 98.3; O2SAT 96
[2017-04-07] MEDS: LACTATED RINGER'S 1000 ML INJ 1,000 ML IV SCH ×2 (03:39→07:30)
[2017-04-07 07:31] LABS: BICARBONATE 25.8 MEQ/L (21.0-32.0); CALCIUM 8.3 MG/DL (8.5-10.1); CREATININE 1.05 MG/DL (0.60-1.30)
[2017-04-07] MEDS: SODIUM CHLORIDE 0.9% FLUSH 10 ML FLUSH IV FLUSH SCH (07:43)
[2017-04-07 07:55] VITALS: BP 140/89; PULSE 59; RESP 18; TEMP 97.8; O2SAT 97
--- NOTE | 2017-04-07 08:43 | HHI.DCPOC ---
Discharge Care Plan Diagnosis: (1) Gastritis (2) Pancreatitis, acute Goals to Promote Your Health * To prevent worsening of your condition and complications * To maintain your health at the optimal level Directions to Meet Your Goals Take your medications as prescribed Follow your dietary instruction Follow activity as directed Keep your appointments as scheduled Take your immunizations and boosters as scheduled If your symptoms worsen call your PCP, if no PCP go to Urgent Care Center or Emergency Room Smoking is Dangerous to Your Health. Avoid second hand smoke Call the 24-hour hour crisis hotline for domestic abuse at All Barron MD Apr 07, 2017 08:43
--- NOTE | 2017-04-07 08:43 | HHI.FPPN ---
Subjective Remarks Patient seen and examined this morning. No acute events overnight. Patient reports improved pain this morning. No nausea or vomiting. Tolerated full liquid diet yesterday without any issues. Disease review go home. Denies any symptoms, including chest pain, shortness of breath, leg pain. Objective Vitals Vital Signs Date Time Temp Pulse Resp B/P (MAP) Pulse Ox O2 Delivery O2 Flow Rate FiO2 04/07/17 07:55 97.8 59 18 140/89 (106) 97 04/07/17 03:34 98.3 74 16 115/73 (87) 96 04/06/17 23:51 98.3 82 14 120/66 (84) 94 04/06/17 19:10 95 04/06/17 19:08 98.2 73 18 137/79 (98) 94 04/06/17 15:32 98.7 79 16 134/79 (97) 95 04/06/17 11:57 98.7 73 18 134/95 (108) 97 04/06/17 09:52 20 I/O 04/06/17 04/06/17 04/06/17 04/07/17 04/07/17 04/07/17 07:00 15:00 23:00 07:00 15:00 23:00 Intake Total 1000 ml Balance 1000 ml Intake IV Total 1000 ml # Voids 4 Result Diagram: 04/06/17 0710 04/07/17 0638 Imaging Last Impressions Abdomen/Pelvis CT 04/05/17 1522 Signed Impressions: Service Date/Time: Wednesday, April 05, 2017 16:27 - CONCLUSION: 1. No abnormality is identified to explain the abdominal pain. No acute finding is seen. 2. There is a stable 12 mm left adrenal gland nodule. The lack of bladder changer the one year strongly suggests a benign process. Efe Plaza MD Objective Remarks GEN: Well-developed, well-nourished patient. No acute distress. CV: Regular rate and rhythm without obvious murmurs LUNGS: Clear to auscultation bilaterally. Normal respiratory effort. No wheezes , rales, rhonchi. GI: Soft, nontender, nondistended. No palpable masses. Bowel sounds WNL. EXT: No edema. A/P Assessment and Plan 52 y/o male with history of pancreatitis, presents with abdominal pain with lipase elevated. Will admit for pancreatitis Discharge Planning Pending improvement of abdominal pain and tolerance of a diet Problem List: (1) Pancreatitis, acute ICD Codes: K85.90 - Acute pancreatitis without necrosis or infection, unspecified Status: Acute Plan: Patient admitted for pancreatitis due to elevated lipase, gastritis is also in the differential. Pt denies any alcohol use Lipases trended down from 935-153 on 04/06/17 [place] score of 0. Unable to calculate [place] due to no ABG CT scan: no acute abnormality -Tolerated FLD -Protonix 40 mg IV daily -LR at 250 mL per hour -I/O -Pain control: Toradol, morphine breakthrough -UDS, alcohol level: Negative -Lipid profile: Within normal limits (2) Gastritis ICD Codes: K29.70 - Gastritis, unspecified, without bleeding Plan: See plan above (3) HTN (hypertension) ICD Codes: I10 - Essential (primary) hypertension Plan: BP 165/11 on admission. Continues to be mildly elevated during his hospitalization. Trended down. F/u with PCP -May benefit from outpatient treatment if continued (4) FEN Status: Acute Plan: Fluids: LR @ 250mls/hr Electrolytes: wnl, continue to monitor Nutrition: Liquid diet DVT ppx: early ambulation, SCDs Problem Qualifiers (1) Pancreatitis, acute: Qualified Codes: K85.90 - Acute pancreatitis without necrosis or infection, unspecified (2) HTN (hypertension): Qualified Codes: I10 - Essential (primary) hypertension All Barron MD Apr 07, 2017 08:43
[2017-04-07] MEDS ORDERED: OMEP20TA93 PO (08:44)
--- NOTE | 2017-04-07 10:39 | HHI.DS ---
Discharge Summary Admission Date Apr 05, 2017 at 17:49 Discharge Date: Apr 07, 2017 Admitting Diagnosis Pancreatitis/Nausea/Vomitting (1) Pancreatitis, acute Diagnosis: Principal Plan: Patient admitted for pancreatitis due to elevated lipase, gastritis is also in the differential. Pt denies any alcohol use Lipases trended down from 935-153 on 04/06/17 [place] score of 0. Unable to calculate [place] due to no ABG CT scan: no acute abnormality -Tolerated FLD -Protonix 40 mg IV daily -LR at 250 mL per hour -I/O -Pain control: Toradol, morphine breakthrough -UDS, alcohol level: Negative -Lipid profile: Within normal limits ICD Codes: K85.90 - Acute pancreatitis without necrosis or infection, unspecified Status: Acute (2) Gastritis Diagnosis: Secondary Plan: See plan above ICD Codes: K29.70 - Gastritis, unspecified, without bleeding (3) HTN (hypertension) Diagnosis: Secondary Plan: BP 165/11 on admission. Continues to be mildly elevated during his hospitalization. Trended down. F/u with PCP -May benefit from outpatient treatment if continued ICD Codes: I10 - Essential (primary) hypertension (4) FEN Diagnosis: Secondary Plan: Fluids: LR @ 250mls/hr Electrolytes: wnl, continue to monitor Nutrition: Liquid diet DVT ppx: early ambulation, SCDs Status: Acute Brief History 52-year-old [place] male with history of pancreatitis presents today with abdominal pain. He states the pain started yesterday afternoon around 6 PM. Pain started suddenly. Located around his left/middle abdomen. Pain does not radiate. Discussed the pain is burning. 11/15. The pain has resolved currently after pain medication. The pain is constant. The pain did not come and go. He took 2 BC powders yesterday evening, they didn't help. He has vomited numerous times. No bloody emesis. Continued nausea. Denies any chest pain or shortness of breath. Denies any diarrhea. No fever/chills. Last bowel movement yesterday afternoon. Had baked chicken yesterday evening, said it tasted funny. No history of gallbladder disease. Says he has a history of hyperlipidemia. He last had pancreatitis in 2014 and was hospitalized. At that time, he was a heavy drinker. Stopped drinking since then. History of heartburn as well. Smoker as well. CBC/BMP: 04/06/17 0710 04/07/17 0638 Significant Findings Laboratory Tests Test 04/05/17 14:42 04/05/17 14:45 04/06/17 07:10 04/07/17 06:38 Random Glucose 107 MG/DL (74-106) Total Protein 8.9 GM/DL (6.4-8.2) Potassium Level 3.4 MEQ/L (3.5-5.1) Estimat Glomerular Filtration Rate 83 ML/MIN (>89) Troponin I LESS THAN 0.02 NG/ML LDL Cholesterol 119 MG/DL (0-99) Lipase 935 U/L (73-393) Lymphocytes (%) (Auto) 45.1 % (9.0-44.0) Monocytes (%) (Auto) 8.2 % (0.0-8.0) Calcium Level 8.3 MG/DL (8.5-10.1) Imaging Last Impressions Abdomen/Pelvis CT 04/05/17 1522 Signed Impressions: Service Date/Time: Wednesday, April 05, 2017 16:27 - CONCLUSION: 1. No abnormality is identified to explain the abdominal pain. No acute finding is seen. 2. There is a stable 12 mm left adrenal gland nodule. The lack of change control specialist the one year strongly suggests a benign process. Efe Plaza MD PE at Discharge GEN: Well-developed, well-nourished patient. No acute distress. CV: Regular rate and rhythm without obvious murmurs LUNGS: Clear to auscultation bilaterally. Normal respiratory effort. No wheezes , rales, rhonchi. GI: Soft, nontender, nondistended. No palpable masses. Bowel sounds WNL. EXT: No edema. Hospital Course 52-year-old male with history of peritonitis presents with abdominal pain and vomiting. Found to have elevated lipase at 900. Abdominal CT was performed, which was negative. Patient admitted, kept nothing by mouth and started on high rate of IV fluids. Patient gradually improved. He was started on full liquid diet. Patient tolerated diet overnight, with no nausea or vomiting. Improved abdominal pain. Patient discharged in stable condition with recommended PCP follow-up. Pt Condition on Discharge: Stable Discharge Disposition: Discharge Home Discharge Instructions DIET: Follow Instructions for: Full Liquid Diet Activities you can perform: Regular-No Restrictions Follow up Referrals: PCP Follow-up - 1 Week with All Barron MD New Medications: Omeprazole (Omeprazole) 20 Mg Tab 20 MG PO DAILY, #30 TAB 0 Refills Continued Medications: Acetaminophen (Acetaminophen Extra Strength) 500 Mg Cap 1000 MG PO Q6H PRN for PAIN SCALE 4 TO 10, #60 CAP 1 Refill Ibuprofen (Ibuprofen) 600 Mg Tab 600 MG PO Q6H PRN for Pain/Inflammation, #40 TAB Orphenadrine ER 12 HR (Orphenadrine CR) 100 Mg Tab 100 MG PO Q12HR for Muscle Spasm, #10 TAB All Barron MD Apr 07, 2017 10:39
== END 2017-04-07 10:24 | disposition home or self-care (01) | DRG 440 ==
LOC: NEPD 14:14 → NEDA 17:48 → UNDOADMOB 17:49 → NEDA 17:49 → NEPHCDU 20:38 → NEDA 20:38 → OBSVTOIN 04-06 14:37 → UNDODISOB 04-07 10:24
PROVIDERS: ADMIT Family Medicine; ATTEND Family Medicine
DX: K85.90 Acute pancreatitis without necrosis or infection, unspecified (principal); E27.8 Other specified disorders of adrenal gland; K29.70 Gastritis, unspecified, without bleeding; I10 Essential (primary) hypertension; E78.5 Hyperlipidemia, unspecified; F17.200 Nicotine dependence, unspecified, uncomplicated
CPT/HCPCS: 74177; 80048; 80053; 80061; 80307; 81001; 83690; 84484; 85025; 96361; 96374; 96375; C9113; G0378; J1885; J2405; J7030; J7120; Q9967